=== PATIENT | female | born 1990 ===

== ENCOUNTER 2017-04-20 10:20 | Emergency (ER) | payer MEDICAID, OTHER ==
[2017-04-20 11:01] VITALS: BP 141/82; PULSE 82; RESP 18; TEMP 99; O2SAT 99
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
== END 2017-04-20 11:52 | disposition home or self-care (01) ==
LOC: MERGE 10:20 → ED 10:20
DX: Z51.89 Encounter for other specified aftercare (principal)